=== PATIENT | female | born 1995 | race Caucasian/White ===

== ENCOUNTER 2021-01-06 15:27 | Outpatient (REF) | payer MEDICAID, SELFPAY ==
[2021-01-06 16:30] LABS: MANUAL DIFF FLAG NO
[2021-01-06 17:20] LABS: Basophils Absolute Auto 0.1 X10*3/uL (0.0-0.2); Basophils Percent Auto 0.6 % (0-2); Eosinophils Absolute Auto 0.3 X10*3/uL (0.0-0.4); Eosinophils Percent Auto 2.6 % (0-4); Hematocrit 36.3 % (37.0-47.0); Hemoglobin 12.6 g/dl (12.0-16.0); Imm Gran Abs Auto 0.03 X10*3/uL (0.00-0.03); Imm Gran Pct Auto 0.3 % (0.0-0.4); Lymphocytes Absolute Auto 3.3 X10*3/uL (1.2-4.9); Lymphocytes Percent Auto 31.8 % (20-40); Mean Corpuscular HGB Conc 34.7 g/dl (31.0-35.0); Mean Corpuscular Hemoglobin 30.4 pg (27.0-33.0); Mean Corpuscular Volume 87.7 fL (80.0-98.0); Monocytes Absolute Auto 0.6 X10*3/uL (0.1-1.2); Monocytes Percent Auto 5.6 % (2-11); Neutrophils Absolute Auto 6.11 x10*3/uL (2.0-8.3); Neutrophils Percent Auto 59.1 % (45-73); Platelet Count 235 X10*3/uL (160-400); Red Blood Count 4.14 X10*6/uL (4.20-5.50); Red Cell Distribution Width 11.2 % (11.0-16.0); White Blood Count 10.3 X10*3/uL (4.8-10.8)
== END 2021-01-06 15:28 | disposition home or self-care (01) ==
LOC: HO.LAB 15:27
PROVIDERS: PCP Family Medicine; Visit Provider Internal Medicine Pulmonary Disease
DX: J45.909 Unspecified asthma, uncomplicated (principal); Z91.09 Other allergy status, other than to drugs and biological substances
CPT/HCPCS: 36415; 82785; 85025; 86003; 99202

== ENCOUNTER 2021-01-27 14:29 | Outpatient (REF) | payer MEDICAID, SELFPAY ==
--- NOTE | 2021-01-27 17:19 | PFT_ITS ---
INDICATION: Asthma. SPIROMETRY: The FEV1 to FVC of 67% with an FEV1 of 3.26 L, which is 100% predicted and an FVC of 4.87 L which is 228% predicted. To note, the [id number] is down to 38% prior to bronchodilators. The maximum voluntary ventilation 120% predicted. LUNG VOLUMES: Total lung capacity 120% predicted and residual volume 144% predicted. DIFFUSION CAPACITY: DLCO 106% predicted. COMPARISONS: None. INTERPRETATION: There seems to be an obstructive ventilatory defect consistent with likely uncontrolled asthma with severe small airways disease consistent with her asthma severity. The patient did have a significant response to bronchodilators noted. Normal maximum voluntary ventilation. Lung volumes with a trend of hyperinflation and significant air trapping due to her small airways disease. Normal diffusion capacity. Clinical correlation warranted. Gallito Soria MD MR/MODL / [id number]
== END 2021-01-27 14:30 | disposition home or self-care (01) ==
LOC: HO.RESP 14:29
PROVIDERS: PCP Family Medicine; Visit Provider Internal Medicine Pulmonary Disease
DX: J45.909 Unspecified asthma, uncomplicated (principal)
CPT/HCPCS: 94060; 94727; 94729; 99212

== ENCOUNTER 2022-11-15 14:59 | Outpatient (AMB) | payer MEDICAID, SELFPAY ==
--- NOTE | 2022-11-15 15:02 | A.OFFVIS_ITS ---
Intake Vital Signs 11/15/22 15:03 Height 5 ft 4 in Weight 229 lb 4.492 oz BMI 39.4 BP 122/77 Blood Pressure Location Rt brachial Position Sitting Pulse 94 Pulse Source Doppler Pulse Oximetry (%) 96 Oxygen Delivery Method Room Air Intake Visit Reasons: asthma Allergies Sulfa (Sulfonamide Antibiotics) Allergy (Unknown, Verified 11/15/22 15:04) redness and itching Pt states no known allergy to Allergy (Unknown, Uncoded 01/06/21 15:29) Unknown HPI asthma HPI Details 27-year-old lady, previously followed fo r asthma and environmental allergies with suboptimal control on nebulized budesonide, nebulized albuterol, and albuterol MDI. Patient not followed up for approximately 2 years, now returns to [facility] care. She states that her asthma regimen is is same and she still gets very suboptimal control of his symptoms. She complains of intermittent wheezing. She also has significant underlying environmental allergies. She denies an acute exacerbation at this time. Review of Systems Const Denies daytime sleepiness, Denies excessive sweating, Denies fatigue, Denies fever(s), Denies lethargy, Denies malaise, Denies night sweats, Denies snoring and Denies weight loss Eyes Denies blurry vision and Denies itchy eyes ENT Denies nasal congestion, Denies post nasal drip, Denies sinus pain, Denies sinus pressure and Denies other ( Thrush) Card Denies chest pain, Denies pedal edema, Denies dyspnea, Reports dyspnea on exertion, Denies orthopnea and Denies paroxysmal nocturnal dyspnea Resp Denies cough, Denies hemoptysis, Denies excessive phlegm production, Denies dyspnea, Reports dyspnea on exertion, Denies snoring and Reports wheezing GI Denies abdominal pain and Denies heartburn Musc Denies myalgias, Denies arthralgias and Denies joint swelling Skin/Breast Denies rash Neuro Denies memory loss and Denies seizure-like activity Psych Denies abnormal sleep pattern, Denies anxiety and Denies memory loss Endo Denies excessive sweating, Denies fatigue and Denies heat intolerance Richard/Lymph Denies easy bruising Aller/Immun Denies itchy eyes, Denies seasonal rhinorrhea and Reports wheezing Physical Exam Vital Signs: Last Vital Signs Pulse 94 11/15/22 15:03 BP 122/77 11/15/22 15:03 Pulse Ox 96 11/15/22 15:03 Oxygen Delivery Method Room Air 11/15/22 15:03 BMI result Body Mass Index 39.4 Const General: no acute distress and alert Nutritional Appearance: obese Orientation/consciousness: Other orientation findings ( oriented) HEENT Head: Yes atraumatic Eyes General: appearance normal, both eyes and all related structures Sclerae: sclerae normal EOM: EOMs intact bilaterally Neck Neck: Yes supple Lymphatic: no lymphadenopathy noted Resp Effort & Inspection: normal respiratory effort and no use of accessory muscles Auscultation: clear to auscultation bilaterally Cardio Rate: regular rate Rhythm: regular rhythm Heart sounds: no gallops, no murmurs and no rubs Skin General skin exam: other ( warm) Extrem General: No clubbing, No cyanosis and No edema Assessment & Plan Assessment & Plan (1) Asthma: Code(s): J45.909 - Unspecified asthma, uncomplicated Plan: Suboptimally controlled on nebulized budesonide, will switch to airduo. Continue albuterol MDI/nebs. (2) Environmental allergies: Code(s): Z91.09 - Other allergy status, other than to drugs and biological substances Plan: Will obtain IgE level, CBC with differential, and RAST panel for further eval uation. Orders: Orders Rast Allergen Today Z91.09 - Other allergy status, other than to drugs and biological substances Complete Blood Count Auto Diff Today Z91.09 - Other allergy status, other than to drugs and biological substances PFT pulmonary function test Today J45.909 - Unspecified asthma, uncomplicated Medications: New fluticasone propion-salmeterol 113-14 mcg/actuation (AirDuo RespiClick) 1 inh inhalation BID 1 ea 6RF 30 days J45.909 - Unspecified asthma, uncomplicated Refilled albuterol sulfate 90 mcg/actuation 2 puffs inhalation Q4-6H PRN 1 ea 6RF shortness of breath or wheezing 30 days J45.909 - Unspecified asthma, uncomplicated ipratropium-albuterol 0.5 mg-3 mg(2.5 mg base)/3 mL 3 mL inhalation TID 270 mL 6RF wheezing 30 days J45.909 - Unspecified asthma, uncomplicated Discontinued budesonide Discontinued Reason: Doctor's Order 0.5 mg (2 mL) inhalation BID 120 mL 0RF 30 days Coding Level of Care Code Est Pt Level 4 (37537) Diagnoses Asthma J45.909 Environmental allergies Z91.09
[2022-11-15 15:03] VITALS: BP 122/77; PULSE 94; O2SAT 96; BMI 39.4
== END 2022-11-15 15:15 | disposition home or self-care (01) ==
PROVIDERS: PCP Family Medicine; Visit Provider Internal Medicine Pulmonary Disease
DX: J45.909 Unspecified asthma, uncomplicated (principal); Z91.09 Other allergy status, other than to drugs and biological substances
CPT/HCPCS: 99214

== ENCOUNTER 2022-11-15 14:59 | Outpatient (REF) | payer MEDICAID, SELFPAY ==
[2022-11-15 15:51] LABS: MANUAL DIFF FLAG NO
[2022-11-15 16:27] LABS: Basophils Absolute Auto 0.1 X10*3/uL (0.0-0.2); Basophils Percent Auto 0.8 % (0-2); Eosinophils Absolute Auto 0.2 X10*3/uL (0.0-0.4); Eosinophils Percent Auto 2.2 % (0-4); Hematocrit 41.6 % (37.0-47.0); Hemoglobin 13.7 g/dl (12.0-16.0); Imm Gran Abs Auto 0.02 X10*3/uL (0.00-0.03); Imm Gran Pct Auto 0.3 % (0.0-0.4); Lymphocytes Absolute Auto 2.6 X10*3/uL (1.2-4.9); Lymphocytes Percent Auto 33.2 % (20-40); Mean Corpuscular HGB Conc 32.9 g/dl (31.0-35.0); Mean Corpuscular Hemoglobin 28.9 pg (27.0-33.0); Mean Corpuscular Volume 87.8 fL (80.0-98.0); Mean Platelet Volume 11.6 fL (9.4-12.3); Monocytes Absolute Auto 0.5 X10*3/uL (0.1-1.2); Monocytes Percent Auto 6.9 % (2-11); Neutrophils Absolute Auto 4.5 x10*3/uL (2.0-8.3); Neutrophils Percent Auto 56.6 % (45-73); Platelet Count 221 X10*3/uL (160-400); Red Blood Count 4.74 X10*6/uL (4.20-5.50); Red Cell Distribution Width 12.3 % (11.0-16.0); White Blood Count 7.9 X10*3/uL (4.8-10.8)
== END 2022-11-15 15:00 | disposition home or self-care (01) ==
LOC: HO.LAB 14:59
PROVIDERS: PCP Family Medicine; Visit Provider Internal Medicine Pulmonary Disease
DX: J45.909 Unspecified asthma, uncomplicated (principal); Z91.09 Other allergy status, other than to drugs and biological substances
CPT/HCPCS: 36415; 85025; 99212